=== PATIENT | male | born 1955 | race Caucasian/White ===

== ENCOUNTER 2016-11-21 11:05 | Inpatient (IN) | payer OTHER ==
[~2016-11-21] VITALS: Ht 170.2 cm; Wt 127.0 kg
[~2016-11-21 11:05] MED LIST: ALBU8.5H3 INH; AMLO1CAP15 PO; CELE200C PO; GLIM4TAB PO; METO-429 PO; MTF1000T PO; POLY17PO6 PO; SITA50TA2 PO; TETR15DR63 BOTH EYES
[2016-11-21] MEDS ORDERED: SOD CHLORIDE 0.9% 100 ML IV STA (11:59)
[2016-11-21 12:19] LABS: ADD SCAN DIFF NO
[2016-11-21 12:23] LABS: ABNORMAL IP MESSAGE 1; HEMATOCRIT 45.4 % (42.0-52.0); MEAN CORPUSCULAR HEMOGLOBIN 30.2 pg (29.0-33.0); MEAN CORPUSCULAR VOLUME 91.3 fl (82.0-101.0); MEAN PLATELET VOLUME 10.5 fl (7.4-10.4); PLATELET COUNT 218 10^3/UL (140-415); RED BLOOD COUNT 4.97 10^6/ul (4.70-6.10); RED CELL DISTRIBUTION WIDTH 13.2 % (11.5-14.5); WHITE BLOOD COUNT 48.7 10^3/ul (4.8-10.8)
[2016-11-21 12:37] LABS: ALBUMIN 4.3 g/dl (3.3-4.9); POTASSIUM 4.3 mmol/L (3.5-5.1)
[2016-11-21 12:39] LABS: CREATININE 0.53 mg/dl (0.61-1.24)
[2016-11-21 12:40] LABS: ALBUMIN/GLOBULIN RATIO 1.59; BILIRUBIN,INDIRECT 0.7 mg/dl (0-1.1); BILIRUBIN,TOTAL 0.7 mg/dl (0.2-1.3); CALCIUM 9.8 mg/dl (8.4-10.2)
[2016-11-21 12:44] LABS: INR 1.08; PT RATIO 1.1
[2016-11-21 12:45] LABS: PARTIAL THROMBOPLASTIN TIME 24.4 Sec (25.0-35.0)
[2016-11-21] MEDS ORDERED: IODIXANOL LOCM 100 ML BTL ONE (12:52)
[2016-11-21] MEDS ORDERED: SOD CHLORIDE 0.9% 100 ML ONE (12:52)
[2016-11-21 12:57] LABS: LYMPHOCYTES # 37.5 10^3/ul (0.8-2.9); MONOCYTE # 1.5 10^3/ul (0.3-0.9); NEUTROPHIL # 9.7 10^3/ul (1.6-7.5)
--- NOTE | 2016-11-21 13:43 | RADRPT ---
PROCEDURE: CT Abdomen and Pelvis with contrast. CLINICAL INDICATION: Abdominal pain TECHNIQUE: CT of the abdomen and pelvis was performed on a multi-detector scanner following the un complicated IV administration of 100 cc of Visipaque 320. Coronal and sagittal images were reformat silke from the axial data set. One or more of the following dose reduction techniques were used: auto mated exposure control, adjustment of the mA and/or kV according to patient size, use of iterative reconstruction technique. CTDI = 23.83 mGy. DLP = 1676.85 mGy-cm. COMPARISON: CT, 05/29/2016 FINDINGS: CT abdomen: 12 mm right lower lobe pulmonary nodule is again noted, stable over time. The heart size is normal, without pericardial effusion. Coronary arterial calcifications are present. The liver is fatty in filtrated, without evidence of focal mass. Gallbladder, biliary tree, pancreas, spleen, adrenal gla nds and kidneys are unremarkable. No urolithiasis or obstructive uropathy is identified. The stoma ch is grossly unremarkable. There is no abdominal aortic aneurysm or dissection. Aortoiliac atherosclerotic calcifications are noted. Prominent tariq hepatis and periaortic retroperitoneal lymph nodes are identified measuring up to 14 mm short axis diameter (3-89), stable. CT pelvis: No bowel obstruction, free intraperitoneal air or abscess is identified. The appendix is well visua lized and normal. There is no diverticulosis, diverticulitis or colitis. Fat containing umbilical and bilateral inguinal hernias are again seen, without incarceration. Urinary bladder is grossly unr emarkable. Bilateral pelvic and inguinal lymphadenopathy is again seen measuring up to 6.9 x 2.1 cm in the left pelvic sidewall (3-158), previously 5.6 x 2.1 cm. The surrounding osseous structures are remarkable for degenerative spondylosis of the spine. No ost eolytic or osteoblastic lesion is detected. IMPRESSION: 1. Bilateral pelvic and inguinal lymphadenopathy is again seen, increased in size when compared to the prior CT, concerning for neoplastic process, possibly lymphoma or metastatic disease. Further e valuation is recommended. 2. Prominent periaortic and tariq hepatis retroperitoneal lymph nodes are again noted, as well as a 12 mm right lower lobe pulmonary nodule, grossly stable when compared to the prior CT. Additional neoplastic involvement in these locations is not excluded. 3. Hepatic steatosis is noted. 4. Coronary arterial and aortoiliac atherosclerotic calcifications are present. 5. Fat-containing umbilical and bilateral inguinal hernias are noted without incarceration. 6. No bowel obstruction or perforation is identified. RPTAT: EE .Evan Easton MD, MD Date Time Electronically viewed and signed by .Evan Easton MD, on 11/21/2016 13:43 .R/
--- NOTE | 2016-11-21 13:55 | ERA ---
ER Documentation Chief Complaint Date/Time DATE: 11/21/16 TIME: 13:50 Chief Complaint abdominal pain and no bm for 2 days. difficulty urinating as well. no fever HPI 61-year-old male presents to the emergency department complaining of abdominal pain. History available via translation from the patient's daughter. Patient has a recent diagnosis of a leukemia or lymphoma. Recently, patient has had increasing masses developing in his abdomen. He has been pending biopsy which is not been able to obtain at this time. Over the last 2 days, he has had increasing abdominal pain that he rates as a 9/10. He has had some dysuria but no fevers or flank pain. Patient has had no vomiting. Patient has had no hematuria. Patient's pain is poorly localized mostly on the bottom part of his abdomen. It does not radiate. ROS All systems reviewed and are negative except as per history of present illness. Medications Home Meds Active Scripts Polyethylene Glycol* (Miralax*) 17 Gm Powd.pack, 17 GM PO DAILY, #7 Prov:KLEBER BUENROSTRO MD 05/29/16 Albuterol Sulfate* (Proair HFA*) 8.5 Gm Hfa.aer.ad, 2 PUFF INH Q4, #30 INH 1 Refill Prov:NOELLE WILLIAMSON 11/08/14 Sitagliptin* (Januvia*) 50 Mg Tab, 50 MG PO DAILY, #30 Prov:NOELLE WILLIAMSON 11/08/14 Reported Medications Metformin* (Glucophage*) 1,000 Mg Tablet, 1000 MG PO BID, #60 TAB 05/29/16 Celecoxib* (Celebrex*) 200 Mg Capsule, 200 MG PO BID Y for INFLAMATION, CAP 11/05/14 Tetrahydrozoline Hcl* (Visine*) 0.05% - 15 Ml Drops, 2 DROP BOTH EYES Q3H Y for DRY EYES, EA 11/05/14 Glimepiride* (Glimepiride*) 4 Mg Tablet, 4 MG PO BID WITH MEALS, TAB 11/05/14 Amlodipine-Benazepril (Amlodipine-Benazepril) 10-40 Mg Capsule, 1 EACH PO DAILY , TAB 11/05/14 Metoprolol Tartrate* (Lopressor*) 50 Mg Tab, 50 MG PO BID, TAB 11/05/14 Allergies Allergies: Coded Allergies: No Known Allergy (Unverified , 11/21/16) PMhx/Soc History of Surgery: No Anesthesia Reaction: No Hx Neurological Disorder: No Hx Respiratory Disorders: Yes (SLEEP APNEA) Hx Cardiac Disorders: Yes (HTN, HIGH CHOLESTEROL) Hx Psychiatric Problems: No Hx Miscellaneous Medical Probl: Yes (DM, UMBILICAL HERNIA) Hx Alcohol Use: Yes (OCCASIONAL) Hx Substance Use: No Hx Tobacco Use: No (PAST SMOKER 27 YEARS AGO) Smoking Status: Former smoker FmHx Noncontributory for chief complaint Physical Exam Vitals Vital Signs Date Time Temp Pulse Resp B/P Pulse Ox O2 Delivery O2 Flow Rate FiO2 11/21/16 11:09 98.9 115 20 135/85 95 Physical Exam GENERAL: The patient is well developed and appropriate for usual state of health in no apparent distress HEENT: Pupils equal, round, and reactive to light. EOMI. There is no scleral icterus. NECK: C-spine is soft and supple, there is no meningismus. There is no cervical lymphadenopathy. LUNGS: Clear to auscultation bilaterally. There are no rales, wheezes or rhonchi. HEART: Regular rate and rhythm, no murmurs, clicks, rubs or gallops. ABDOMEN: Soft, obese, nondistended. Minimal tenderness to palpation in the lower abdomen. No rebound or guarding. EXTREMITIES: There is no peripheral cyanosis or edema. No focal swelling or erythema. NEURO: The patient moves all four extremities with 5/5 strength. Cranial nerves II - XII are intact. Normal gait. Alert and oriented SKIN: There is no apparent rash or petechiae. HEME/LYMPHATIC: There is no evidence of excessive bruising or lymphedema. PSYCHIATRIC: The patient does not appear anxious or depressed. Result Diagram: 11/21/16 1210 11/21/16 1210 Results 24 hrs Laboratory Tests Test 11/21/16 12:10 White Blood Count 48.710^3/ul Red Blood Count 4.9710^6/ul Hemoglobin 15.0g/dl Hematocrit 45.4% Mean Corpuscular Volume 91.3fl Mean Corpuscular Hemoglobin 30.2pg Mean Corpuscular Hemoglobin Concent 33.0g/dl Red Cell Distribution Width 13.2% Platelet Count 16855^3/UL Mean Platelet Volume 10.5fl Neutrophils % 20.0% Lymphocytes % 77.0% Monocytes % 3.0% Basophils % % Neutrophils # 9.710^3/ul Lymphocytes # 37.510^3/ul Monocytes # 1.510^3/ul Basophils # 10^3/ul Prothrombin Time 14.0Sec Prothrombin Time Ratio 1.1 INR International Normalized Ratio 1.08 Activated Partial Thromboplast Time 24.4Sec Sodium Level 139mmol/L Potassium Level 4.3mmol/L Chloride Level 100mmol/L Carbon Dioxide Level 22mmol/L Anion Gap 21 Blood Urea Nitrogen 13mg/dl Creatinine 0.53mg/dl Glucose Level 240mg/dl Calcium Level 9.8mg/dl Total Bilirubin 0.7mg/dl Direct Bilirubin 0.00mg/dl Indirect Bilirubin 0.7mg/dl Aspartate Amino Transf (AST/SGOT) 19IU/L Alanine Aminotransferase (ALT/SGPT) 40IU/L Alkaline Phosphatase 48IU/L Total Protein 7.0g/dl Albumin 4.3g/dl Globulin 2.70g/dl Albumin/Globulin Ratio 1.59 Lipase 159U/L Current Medications Medications (Trade) Dose Ordered Sig/Marquita Route PRN Reason Start Time Stop Time Status Last Admin Dose Admin Sodium Chloride (NS) 100 ml @ 100 mls/hr Q1H STAT IV 11/21/16 11:59 11/21/16 12:58 DC 11/21/16 12:14 IV Flush 10 ml 10 ml STK-MED ONCE .ROUTE 11/21/16 12:52 11/21/16 12:53 DC 11/21/16 13:26 Sodium Chloride (NS) 100 ml @ ud STK-MED ONCE .ROUTE 11/21/16 12:52 11/21/16 12:53 DC 11/21/16 13:27 Iodixanol (Visipaque Locm) 100 ml STK-MED ONCE .ROUTE 11/21/16 12:52 11/21/16 12:53 DC 11/21/16 13:28 Procedures/MDM Patient was taken to a room, seen and evaluated. Comfort measures were initiated. Diagnostic tests were ordered and reviewed. 3 LEAD RHYTHM STRIP: Atrial fibrillation with controlled ventricular response EK lead EKG reviewed by myself: Atrial fibrillation with controlled ventricular response Normal [place] and intervals Nonspecific ST and T-wave changes without ST elevation Impression: Abnormal EKG RADIOLOGY: reviewed with the radiologist CONSULTATION: Patient's primary care doctor, Dr. Mendoza was notified for admission REEVALUATION: Patient is remained stable in the emergency department MEDICAL DECISION MAKIN-year-old male presents to the emergency department with abdominal pain. In the setting of his significantly elevated white blood cell count, which is likely his leukemia as well as the masses that are developing on his abdomen, I believe the patient is high risk. Patient will be admitted for further diagnostic management of these tumors as well as monitoring of his white blood cell count and control of his pain. Departure Diagnosis: Primary Impression: Abdominal pain Additional Impression: Leukocytosis KELLY JACKSON Nov 21, 2016 13:55
[2016-11-21 13:57] VITALS: TEMP 98.5
[2016-11-21 15:11] LABS: ADD UMIC NO; URINE BILIRUBIN (Dip) NEGATIVE (NEGATIVE); URINE BLOOD (Dip) NEGATIVE (NEGATIVE); URINE COLOR LT. YELLOW (YELLOW); URINE KETONES (Dip) 15 (NEGATIVE); URINE LEUKOCYTE ESTERASE (Dip) NEGATIVE (NEGATIVE); URINE NITRITE (Dip) NEGATIVE (NEGATIVE); URINE TOTAL PROTEIN (Dip) NEGATIVE (NEGATIVE); URINE UROBILINOGEN (Dip) 0.2 E.U./dL (0.1-1.0)
[2016-11-21 16:02] VITALS: BP 127/90; PULSE 75; RESP 18
[2016-11-21 16:11] VITALS: Ht 170.2 cm; Wt 127.0 kg
[2016-11-21] MEDS ORDERED: NACL 0.9% 3 ML SYG IV SCH (18:00)
[2016-11-21] MEDS ORDERED: ACETAMINOPHEN 650 MG SUPP PR PRN (18:00)
[2016-11-21] MEDS ORDERED: ONDANSETRON 4 MG TAB PO PRN (18:00)
[2016-11-21] MEDS ORDERED: HYDROCODONE/APAP (5/325) TAB PO PRN (18:00)
[2016-11-21] MEDS ORDERED: DEXTROSE 50% 50 ML SYRINGE IV PRN ×2 (18:00)
[2016-11-21] MEDS ORDERED: GLUCAGON 1 MG INJ IM PRN (18:00)
[2016-11-21] MEDS ORDERED: morphine 2 MG INJ IV PRN (18:00)
[2016-11-21] MEDS ORDERED: ACETAMINOPHEN 325 MG TAB PO PRN (18:00)
[2016-11-21] MEDS ORDERED: POLYETHYLENE GLYCOL 17 GM PACKET PO PRN (18:00)
[2016-11-21] MEDS ORDERED: GLUCOSE GEL 15 GRAM TUBE BUCCAL PRN (18:00)
[2016-11-21] MEDS ORDERED: GLUCOSE GEL 15 GRAM TUBE PO PRN ×2 (18:00)
[2016-11-21] MEDS ORDERED: CELECOXIB 200 MG CAP PO PRN (18:00)
[2016-11-21] MEDS ORDERED: TETRAHYDROZOLINE 0.05% 15 ML OPH BOTH EYES PRN (18:00)
[2016-11-21] MEDS: INSULIN ASPART [NOVOLOG] 3 ML PEN SC SCH ×2 (18:05→21:00)
--- NOTE | 2016-11-21 18:25 | HP ---
DATE OF ADMISSION: 11/21/2016 CONSULTANTS: 1. Dr. Todd Moss. 2. Dr. Garcia. CHIEF COMPLAINT: Abdominal pain and constipation. HISTORY OF PRESENT ILLNESS: This is a pleasant 61-year-old gentleman with past medical history of s leep apnea, hypertension, arthritis, diabetes mellitus, hypertension, chronic constipation and CLL w ho was diagnosed with abdominal mass and has been seen and evaluated his hematology oncologist and t here has been effort and plan to get the patient to obtain a biopsy of the nodule and the mass, alth ough they have not been successful secondary to waiting for the referral. The patient has been comp laining of having abdominal pain for the past 3 days along with constipation; therefore, he was sen t by his primary care physician to [facility] for further evaluation and treatment . Upon arrival to the ER, the patient had a CT of the abdomen and pelvis that showed bilateral pelv ic inguinal lymphadenopathy which is seen again increased in size when compared to prior CT concerni ng for neoplastic process, possibly lymphoma or metastatic disease, prominent periaortic or tariq he patis. Retroperitoneal lymph nodes are again noted as well as a 12 mm right lower lobe pulmonary no dule, grossly stable when compared to prior CT. Additional neoplastic involvement in this location is not excluded. Hepatic steatosis is noted, coronary arterial and aortoiliac atherosclerotic calci fications are present, fat containing umbilical and bilateral inguinal hernia are noted without inca rceration. No bowel obstruction or perforation was identified. General surgery was consulted from ER. The patient was treated with pain medication in the course of emergency room. He had a bowel m ovement in the ER. At this time, the patient denies any chest pain, shortness of breath, nausea, vo miting, diarrhea. No headache, dizziness, numbness. No change in visual acuity, diplopia, photopho katia. Improvement in abdominal pain, no change in the color of stool. No dysuria, hematuria, urgenc y, incontinence. No neck pain, no restricted range of motion in upper and lower extremities or any other discomfort except what was stated above. PAST MEDICAL AND SURGICAL HISTORY: As above per HPI. MEDICATIONS: 1. Albuterol sulfate. 2. Amlodipine/benazepril. 3. Celebrex. 4. Glimepiride. 5. Glucophage. 6. Lopressor. 7. MiraLax. 8. Januvia. 9. Visine. ALLERGIES: NO KNOWN DRUG ALLERGIES. FAMILY HISTORY: Positive for hypertension, diabetes mellitus. SOCIAL HISTORY: He used to smoke. He quit about 30 years ago. No alcohol, no illicit drugs. REVIEW OF SYSTEMS: As above per HPI, otherwise 12 review of systems was found to be negative. PHYSICAL EXAMINATION: VITAL SIGNS: Temperature 98.5, pulse 75, respiration 18, blood pressure 115/85, oxygen saturation 9 7% in room air. GENERAL APPEARANCE: Patient is lying in the bed comfortably without any acute distress. He is awak e, alert, oriented. He is able to answer my questions properly. Body habitus is morbidly obese wit h a BMI of 43.9. EYES AND ENT: Conjunctivae and lids are normal. Pupils are normal. Extraocular normal. Hearing g rossly normal. Lips are normal. Oral mucosa is mildly dry. NECK: Supple. Trachea is midline. No lymphadenopathy. RESPIRATORY: Effort is normal. Clear to auscultation bilaterally. CARDIOVASCULAR: Normal S1, S2. Regular rhythm and rate. No murmur, no bruits, no edema. Peripher al pulses, radial pulses palpable. Cap refill is normal. CHEST: Normal expansion of thorax in inspiration. GASTROINTESTINAL: Abdomen contour is morbidly obese. Bowel sounds present. No guarding, no reboun d. There is an umbilical hernia which is easily reducible. GENITOURINARY: Deferred. MUSCULOSKELETAL: Upper and lower extremities within normal limits. There is stasis dermatitis bila teral lower extremities. NEUROLOGIC: Cranial nerves II through XII are grossly intact. PSYCHIATRIC: He is awake, alert, oriented. LABORATORY WORK AND IMAGING: WBC 48.7, pulse 50, respirations 45.4, platelets 218. Sodium 139, pot assium 4.3, chloride 100, bicarbonate 22, BUN 13, creatinine 0.53, glucose 240, calcium 9.8. LFTs a ll within normal limits. Urinalysis negative except glucose 0.25%. ASSESSMENT AND PLAN: 1. Abdominal pain, likely secondary to chronic constipation versus bilateral pelvic inguinal lympha denopathy and concern of neoplastic process. General surgery and hematology/oncology have been cons ulted. 2. Chronic constipation. The patient will be continued on MiraLax and placed on Colace. 3. Diabetes mellitus, well controlled on medical management. 4. Insulin sliding scale and low carb diet. The patient on low dose of Lantus and hold glimepiride . 5. Essential hypertension, well controlled on home medications. Will continue to monitor. 6. Chronic lymphocytic leukemia. Hematology/oncology has been consulted. Patient is afebrile. 7. Deep venous thrombosis prophylaxis, on sequential compression devices. 8. For gastrointestinal prophylaxis, on proton pump inhibitor. We will continue to monitor patient closely. Further recommendations, management and treatment as p er clinical course. Dictated By: VICKY SANDRA MD PN/NTS Conf#: [id number] DID#: [id number] CC: EDWARD GARCIA MD;*EndCC*
[2016-11-21] MEDS: metFORMIN 500 MG TAB PO SCH (19:01)
[2016-11-21] MEDS ORDERED: INSULIN GLARGINE [LANtus] 3 ML PEN SC SCH (20:00)
[2016-11-21 20:03] VITALS: BP 131/84; RESP 20
--- NOTE | 2016-11-21 20:19 | CONS ---
Date/Time of Note Date/Time of Note DATE: 11/21/16 TIME: 20:10 Assessment/Plan Assessment/Plan Chief Complaint/Hosp Course 61-year-old morbidly obese German male with abdominal pain, chronic constipation, abdominal and pelvic lymphadenopathy * The above are likely secondary to the patient's CLL. * Recommend CT-guided biopsy of pelvic sidewall mass * Recommend oncology evaluation * Patient will need a bowel regimen for his chronic constipation * Would recommend colonoscopy as patient has never had one. This can be done as an outpatient. * Will order stool for occult blood. The above was discussed extensively with the patient and his family at the bedside. Further recommendations will be made based on the patient's clinical course. Greater than 60 minutes was spent in chart review, direct patient care, and discussion with the patient's family. Problems: Consultation Date/Type/Reason Admit Date/Time Nov 21, 2016 at 14:14 Date of Consultation: Nov 21, 2016 Type of Consultation: GENERAL SURGERY Reason for Consultation Abdominal pain Hx of Present Illness The patient is a morbidly obese 61-year-old German gentleman with past medical history of known CLL, sleep apnea, hypertension, arthritis, diabetes mellitus, chronic constipation who presented to the emergency room complaining of lower abdominal pain and constipation. He describes the pain as being in the suprapubic and inguinal areas. The patient apparently has not been undergoing any treatment for his CLL. He has a known pelvic sidewall mass for which she has been waiting for an image guided biopsy, however, this has taken a long time due to insurance reasons. He is being followed by an oncologist who is not on staff at [facility]. Since arrival to the hospital he has had a bowel movement and reports relief in his abdominal pain. Apparently he has had a history of night sweats for the past 20 years. There is been no recent weight loss. He has never had a colonoscopy. Additional history was obtained from the patient's daughter at the bedside. A 14 point review of systems was conducted and was negative except for that which was mentioned in history of present illness Past Medical History As in history of present illness Family History Significant Family History: heart disease, cancer Social History Smoking Status: Former smoker Exam/Review of Systems Vital Signs Vitals Vital Signs Date Time Temp Pulse Resp B/P Pulse Ox O2 Delivery O2 Flow Rate FiO2 11/21/16 20:03 97.8 106 20 131/84 94 11/21/16 16:02 Room Air Exam GENERAL: Morbidly obese German gentleman who is Awake, alert, oriented 3. No acute distress. SKIN: No jaundice. HEENT: PERRLA, EOMI, No Scleral Icterus NECK: Supple without JVD CARDIOVASCULAR: S1S2, regular rate and rhythm. No murmurs appreciated. RESPIRATORY: Clear to auscultation bilaterally. ABDOMEN: Morbidly obese, Soft, bowel sounds present, nontender to palpation. There is a moderate-sized reducible umbilical hernia palpated. It is nontender to palpation. There is no palpable inguinal lymphadenopathy, however, exam is difficult given the patient's morbidly obese body habitus. RECTAL: Good tone. No blood on finger. No masses palpable, however, exam is difficult given patient's morbidly obese body habitus. EXTREMITIES: Free range of motion 4. No cyanosis, edema, or clubbing. NEUROLOGIC: Cranial nerves II-XII are intact. Sensation is intact grossly. Results Result Diagram: 11/21/16 1210 11/21/16 1210 Results 24 hrs Laboratory Tests Test 11/21/16 12:10 11/21/16 14:50 11/21/16 17:17 White Blood Count 48.7 H Red Blood Count 4.97 Hemoglobin 15.0 Hematocrit 45.4 Mean Corpuscular Volume 91.3 Mean Corpuscular Hemoglobin 30.2 Mean Corpuscular Hemoglobin Concent 33.0 Red Cell Distribution Width 13.2 Platelet Count 218 Mean Platelet Volume 10.5 #H Neutrophils % 20.0 L Lymphocytes % 77.0 H Monocytes % 3.0 Basophils % Neutrophils # 9.7 H Lymphocytes # 37.5 H Monocytes # 1.5 H Basophils # Prothrombin Time 14.0 Prothrombin Time Ratio 1.1 INR International Normalized Ratio 1.08 Activated Partial Thromboplast Time 24.4 L Sodium Level 139 Potassium Level 4.3 Chloride Level 100 Carbon Dioxide Level 22 Anion Gap 21 H Blood Urea Nitrogen 13 Creatinine 0.53 L Glucose Level 240 H Calcium Level 9.8 Total Bilirubin 0.7 Direct Bilirubin 0.00 Indirect Bilirubin 0.7 Aspartate Amino Transf (AST/SGOT) 19 Alanine Aminotransferase (ALT/SGPT) 40 Alkaline Phosphatase 48 Total Protein 7.0 Albumin 4.3 Globulin 2.70 Albumin/Globulin Ratio 1.59 Lipase 159 Urine Color LT. YELLOW Urine Clarity CLEAR Urine pH 5.5 Urine Specific [place] 1.010 Urine Ketones 15 Urine Nitrite NEGATIVE Urine Bilirubin NEGATIVE Urine Urobilinogen 0.2 E.U./dL Urine Leukocyte Esterase NEGATIVE Urine Hemoglobin NEGATIVE Urine Glucose 0.25% H Urine Total Protein NEGATIVE Bedside Glucose 120 Medications Medications Current Medications Influenza Virus Vaccine (Fluzone) 0.5 ml ONCE ONCE IM* ; Start 11/22/16 at 11:00 ; Stop 11/22/16 at 11:01 Albuterol (Ventolin Hfa) 2 puff Q4 INH ; Start 11/21/16 at 21:00 Celecoxib (Celebrex) 200 mg BID PRN PO INFLAMATION; Start 11/21/16 at 18:00 Metoprolol Tartrate (Lopressor) 50 mg BID PO ; Start 11/21/16 at 21:00 Polyethylene Glycol (Miralax) 17 gm DAILY PRN PO CONSTIPATION; Start 11/21/16 at 18:00 Tetrahydrozoline HCl (Geneyes Oph) 2 drop QID PRN BOTH EYES DRY EYES; Start at 18:00 Amlodipine Besylate (Norvasc) 10 mg DAILY PO ; Start 11/22/16 at 09:00 Linagliptin (Tradjenta) 5 mg DAILY PO ; Start 11/22/16 at 09:00 Diagnostic Test (Pha) (Accu-Chek) 1 ea 02 XX ; Start 11/22/16 at 02:00 Insulin Glargine (Lantus) 5 unit DAILY@20 SC ; Start 11/21/16 at 20:00 Ondansetron HCl (Zofran Tab) 4 mg Q6H PRN PO NAUSEA AND/OR VOMITING; Start at 18:00 Acetaminophen (Tylenol Tab) 650 mg Q6H PRN PO PAIN LEVEL 1-3 OR FEVER; Start at 18:00 Acetaminophen (Tylenol Supp) 650 mg Q6H PRN [place] PAIN LEVEL 1-3 OR FEVER; Start 11/21/16 at 18:00 Acetaminophen/ Hydrocodone Bitart (Bastrop (5/325)) 1 tab Q6H PRN PO MODERATE PAIN LEVEL 4-6; Start 11/21/16 at 18:00 Morphine Sulfate (morphine) 1 mg Q4H PRN IV SEVERE PAIN LEVEL 7-10; Start 11/21 at 18:00 Docusate Sodium (Colace) 100 mg DAILY PO ; Start 11/22/16 at 09:00 Pantoprazole (Protonix Tab) 40 mg DAILY@06 PO ; Start 11/22/16 at 06:00 Miscellaneous Information 1 ea NOTE XX ; Start 11/21/16 at 18:00 Glucose (Glutose) 15 gm Q15M PRN PO DECREASED GLUCOSE; Start 11/21/16 at 18:00 Glucose (Glutose) 22.5 gm Q15M PRN PO DECREASED GLUCOSE; Start 11/21/16 at 18: 00 Dextrose (D50w Syringe) 25 ml Q15M PRN IV DECREASED GLUCOSE; Start 11/21/16 at 18:00 Dextrose (D50w Syringe) 50 ml Q15M PRN IV DECREASED GLUCOSE; Start 11/21/16 at 18:00 Glucagon (Glucagen) 1 mg Q15M PRN IM DECREASED GLUCOSE; Start 11/21/16 at 18:00 Glucose (Glutose) 15 gm Q15M PRN BUCCAL DECREASED GLUCOSE; Start 11/21/16 at 18 :00 Benazepril HCl (Lotensin) 40 mg DAILY PO ; Start 11/22/16 at 09:00 Procedures Procedures PROCEDURE: CT Abdomen and Pelvis with contrast. CLINICAL INDICATION: Abdominal pain TECHNIQUE: CT of the abdomen and pelvis was performed on a multi-detector scanner following the uncomplicated IV administration of 100 cc of Visipaque 320. Coronal and sagittal images were reformatted from the axial data set. One or more of the following dose reduction techniques were used: automated exposure control, adjustment of the mA and/or kV according to patient size, use of iterative reconstruction technique. CTDI = 23.83 mGy. DLP = 1676.85 mGy- cm. COMPARISON: CT, 05/29/2016 FINDINGS: CT abdomen: 12 mm right lower lobe pulmonary nodule is again noted, stable over time. The heart size is normal, without pericardial effusion. Coronary arterial calcifications are present. The liver is fatty infiltrated, without evidence of focal mass. Gallbladder, biliary tree, pancreas, spleen, adrenal glands and kidneys are unremarkable. No urolithiasis or obstructive uropathy is identified. The stomach is grossly unremarkable. There is no abdominal aortic aneurysm or dissection. Aortoiliac atherosclerotic calcifications are noted. Prominent tariq hepatis and periaortic retroperitoneal lymph nodes are identified measuring up to 14 mm short axis diameter (3-89), stable. CT pelvis: No bowel obstruction, free intraperitoneal air or abscess is identified. The appendix is well visualized and normal. There is no diverticulosis, diverticulitis or colitis. Fat containing umbilical and bilateral inguinal hernias are again seen, without incarceration. Urinary bladder is grossly unremarkable. Bilateral pelvic and inguinal lymphadenopathy is again seen measuring up to 6.9 x 2.1 cm in the left pelvic sidewall (3-158), previously 5.6 x 2.1 cm. The surrounding osseous structures are remarkable for degenerative spondylosis of the spine. No osteolytic or osteoblastic lesion is detected. IMPRESSION: 1. Bilateral pelvic and inguinal lymphadenopathy is again seen, increased in size when compared to the prior CT, concerning for neoplastic process, possibly lymphoma or metastatic disease. Further evaluation is recommended. 2. Prominent periaortic and tariq hepatis retroperitoneal lymph nodes are again noted, as well as a 12 mm right lower lobe pulmonary nodule, grossly stable when compared to the prior CT. Additional neoplastic involvement in these locations is not excluded. 3. Hepatic steatosis is noted. 4. Coronary arterial and aortoiliac atherosclerotic calcifications are present. 5. Fat-containing umbilical and bilateral inguinal hernias are noted without incarceration. 6. No bowel obstruction or perforation is identified. RPTAT: EE .Evan Easton MD, Date Time Electronically viewed and signed by .Evan Easton MD, on 11/21/2016 13: 43 .R/ CC: KELLY JACKSON MICHAEL A. MD Nov 21, 2016 20:19
[2016-11-21] MEDS: ALBUTEROL HFA 8 GM INHALER INH SCH (21:45)
[2016-11-21] MEDS: METOPROLOL 50 MG TAB PO SCH (21:46)
[2016-11-22] MEDS: ALBUTEROL HFA 8 GM INHALER INH SCH ×4 (00:40→12:42)
[2016-11-22] MEDS ORDERED: ACCU-CHEK XX SCH (02:00)
[2016-11-22 05:11] LABS: ADD SCAN DIFF NO
[2016-11-22 05:27] LABS: ABNORMAL IP MESSAGE 1; HEMATOCRIT 43.4 % (42.0-52.0); HEMOGLOBIN 14.4 g/dl (14.0-18.0); MEAN CORPUSCULAR HEMOGLOBIN 30.7 pg (29.0-33.0); MEAN CORPUSCULAR HGB CONC 33.2 g/dl (32.0-37.0); MEAN CORPUSCULAR VOLUME 92.5 fl (82.0-101.0); MEAN PLATELET VOLUME 10.8 fl (7.4-10.4); PLATELET COUNT 209 10^3/UL (140-415); RED BLOOD COUNT 4.69 10^6/ul (4.70-6.10); RED CELL DISTRIBUTION WIDTH 13.1 % (11.5-14.5)
[2016-11-22 05:38] LABS: POTASSIUM 3.8 mmol/L (3.5-5.1)
[2016-11-22 05:41] LABS: CREATININE 0.52 mg/dl (0.61-1.24)
[2016-11-22 05:42] LABS: CALCIUM 9.1 mg/dl (8.4-10.2); CHOL/HDL RATIO 4.6 RATIO; MAGNESIUM 1.5 mg/dl (1.7-2.5)
[2016-11-22] MEDS ORDERED: PANTOPRAZOLE (EC) 40 MG TAB PO SCH (06:00)
[2016-11-22 06:12] LABS: THYROID STIMULATING HORMONE 2.69 MIU/L (0.465-4.680)
[2016-11-22 07:43] VITALS: BP 138/89; RESP 20
[2016-11-22] MEDS: INSULIN ASPART [NOVOLOG] 3 ML PEN SC SCH ×2 (08:00→11:48)
[2016-11-22] MEDS ORDERED: AMLODIPINE 10 MG TAB PO SCH (09:00)
[2016-11-22] MEDS ORDERED: LINAGLIPTIN 5 MG TABLET PO SCH (09:00)
[2016-11-22] MEDS ORDERED: BENAZEPRIL 40 MG TAB PO SCH (09:00)
[2016-11-22] MEDS ORDERED: DOCUSATE SODIUM 100 MG CAP PO SCH (09:00)
--- NOTE | 2016-11-22 09:02 | CONS ---
DATE OF ADMISSION: 11/21/2016 DATE OF CONSULTATION: 11/22/2016 REQUESTING PHYSICIAN: Jignesh Ferguson MD REASON FOR CONSULTATION: Pelvic lymphadenopathy and leukocytosis. Dear Dr. Ferguson: Thank you very much for asking me to see this very interesting and pleasant gentleman in hematologic consultation. As you know, I am familiar with Mr. Jaimes who I saw actually on 11/06/2014 when the patient was hospitalized. At that time, he had leukocytosis with a white count of 40,000 of wh ich 80% were lymphocytes. The patient at that time had a normal hemoglobin and hematocrit. It was felt that the patient had a chronic lymphocytic leukemia. No treatment was initiated at that time. The patient is now readmitted to [facility] with complaints of lower abdominal eduarda n. The patient states that he had been experiencing lower abdominal pain for approximately the past 3 or 4 days. The patient states this was associated with constipation. He, however, did not have nausea or vomiting. Since being in the hospital, the patient has had multiple bowel movements, and the pain has resolved . A CT scan of the abdomen and pelvis which was done in the emergency room does show bilateral pelvic and inguinal lymphadenopathy. There is also prominent periaortic and retroperitoneal lymphadenopath y. In the pelvis there is a 6 x 9 x 2.1 cm mass in the left pelvic side wall. It should be noted t hat the patient was in the emergency room in May 2016. At that time, a CT scan of the abdomen a nd pelvis was done which demonstrated the bulky pelvic lymphadenopathy as well as retroperitoneal ly mphadenopathy. This had adenopathy has increased since that time. Apparently there was a plan to h ave this lymphadenopathy biopsied, but this has never been done. As noted, the patient's main complaint on admission was abdominal pain. He has had no nausea or vom iting. No fevers, although he does state he has had night sweats for many years. His appetite has been good. He has had no unusual weight loss or gain. On admission to the hospital, the patient's white count was 48,700 with an absolute lymphocyte count of 37,500 or 77% lymphocytes. Hemoglobin was 15, hematocrit 45.4, platelet count 218,000. Protime 14 seconds, INR of 1.08, PTT 24.4 seconds. A comprehensive metabolic panel revealed a glucose of 204. Liver functions were normal. Albumin was 4.2 with a total protein of 7.0. PAST MEDICAL HISTORY: Does include hypertension, diabetes mellitus, and sleep apnea. PAST SURGICAL HISTORY: He has had no surgeries in the past. He said he has had no unusual infectio ns such as hepatitis or tuberculosis. MEDICATIONS: At home have included: 1. Albuterol. 2. Amlodipine. 3. Benazepril 4. Celebrex. 5. Glimepiride. 6. Glucophage. 7. Lopressor. 8. MiraLax. 9. Januvia and Visine eyedrops. ALLERGIES: HE HAS NO KNOWN ALLERGIES. FAMILY HISTORY: The patient's family history is remarkable in that there is a history of hypertensi on and diabetes mellitus. There is no history of any malignancy or hematologic abnormalities. SOCIAL HISTORY: The patient was born in [facility], [place]. He has no known exposures to industrial toxins or ionizing radiation. The patient does admit to smoking in the past, but he has not smoked now for 2 5 to 30 years. He does use alcohol occasionally. PHYSICAL EXAMINATION: GENERAL: At this time reveals a well-developed, but obese male who is in no acute distress. VITAL SIGNS: Temperature 98.1, pulse 81, respirations 20, blood pressure 138/89, pulse oximetry 96% on room air. SKIN: No ecchymosis, no petechiae or rashes. There are bilateral hyperpigmentation and stasis durbin ges in the pretibial areas. HEENT: Normocephalic. No evidence of trauma. The pupils are equal, round, react to light and acco mmodation. Sclerae are nonicteric. Oral mucosa is moist without lesions. Tongue is well papillate d. No gingival hyperplasia, no hypertrophy of Waldeyer's ring, no mucosal telangiectasias. NECK: Supple, no jugular venous distention or thyroid enlargement. No carotid bruits. CHEST: Decreased breath sounds in both bases but no rhonchi, wheezes, rales, or rubs. There is no pain on percussion of the spine, sternum, clavicles, or ribs. BREASTS: No gynecomastia. HEART: Regular sinus rhythm, no S3, S4, or murmurs. ABDOMEN: Obese. Unable to appreciate any organomegaly at this time. NODES: No palpable lymphadenopathy at this time, but difficult to palpate again because of the dayton ent's obesity. EXTREMITIES: Good range of motion, no clubbing, edema, or cyanosis. NEUROLOGIC: Normal. I have reviewed today's peripheral smear. This does show normal red blood cell morphology. White b lood cells are increased. The majority of these white blood cells are lymphocytes. There are some atypical lymphocytes and some "basket cells." The platelets are normal in number and appearance. DISCUSSION: This patient has chronic lymphocytic leukemia. He has, at this time what would be desc ribed as stage I chronic lymphocytic leukemia, meaning that the patient does have lymphadenopathy. He actually does not have any symptoms nor does he have any other compromise hematologically. It is not clear that the patient's lower abdominal pain is was, in fact, in any way related to the l ymphadenopathy which is present and expected in CLL. The patient has not had a colonoscopy in the past, and therefore, I would agree with Dr. Moss that a colonoscopy should be performed if possible. The patient's pelvic lymphadenopathy I feel is almost certainly related to a lymphoproliferative dis order. There certainly would be no contraindication to biopsying this lesion to rule out the possib ility of a second malignancy. I will obtain further studies at this time to include an LDH, uric acid, quantitative immunoglobulin s, and a beta 2 microglobulin. Will also send peripheral blood for flow cytometry to verify the fac t that this is chronic lymphocytic leukemia. Normally patients with chronic lymphocytic leukemia who have this hematologic picture, treatment is not indicated. If, however, the patient is symptomatic and his most recent abdominal pain is relate d to the lymphoproliferative disorder, treatment may be administered. I feel the patient would like ly have an excellent response to a combination of rituximab and bendamustine. Given the bulky lymph adenopathy, one would have to be careful regarding the possibility of tumor lysis syndrome and make sure that the patient was adequately prepared prior to the initiation of any therapy. Dictated By: EDWARD DUARTE MD, SR/NTS Conf#: [id number] DID#: [id number]
[2016-11-22] MEDS ORDERED: LIDOCAINE 1% (MDV) 20 ML INJ ONE (09:08)
[2016-11-22 09:15] VITALS: BP 145/100; PULSE 110; RESP 16
[2016-11-22] MEDS ORDERED: FENTAnyl 50 MCG/ML VIAL ONE (09:27)
[2016-11-22] MEDS ORDERED: MIDAZOLAM 1 MG/ML 2 ML INJ ONE (09:28)
[2016-11-22] MEDS ORDERED: SOD CHLORIDE 0.9% 500 ML ONE (09:31)
[2016-11-22 09:45] VITALS: BP 143/83; PULSE 120; RESP 16
[2016-11-22 09:50] VITALS: BP 135/97; PULSE 110; RESP 16
[2016-11-22 09:52] LABS: BASOPHIL # 0.5 10^3/ul (0.0-0.1); EOSINOPHILS # 0.5 10^3/ul (0.0-0.5); LYMPHOCYTES # 37.1 10^3/ul (0.8-2.9); MONOCYTE # 1.9 10^3/ul (0.3-0.9); NEUTROPHIL # 6.6 10^3/ul (1.6-7.5)
[2016-11-22 09:55] VITALS: BP 131/92; PULSE 120; RESP 16
[2016-11-22] MEDS ORDERED: INFLUENZA VIRUS VACCINE 0.5 ML SYG IM* ONE (11:00)
[2016-11-22] MEDS: metFORMIN 500 MG TAB PO SCH (11:38)
[2016-11-22] MEDS: METOPROLOL 50 MG TAB PO SCH (11:40)
[2016-11-22 14:39] LABS: LACTATE DEHYDROGENASE 393 IU/L (313-618)
[2016-11-22 14:55] LABS: URIC ACID 7.8 mg/dl (3.1-7.9)
[2016-11-22 15:09] LABS: IMMUNOGLOBULIN G 673 mg/dl (700-1600)
[2016-11-22 15:10] LABS: IMMUNOGLOBULIN A 139 mg/dl (70-400)
[2016-11-22 15:16] LABS: IMMUNOGLOBULIN M < 25 mg/dl (40-230)
--- NOTE | 2016-11-22 16:13 | PDOCDIS ---
Discharge Instructions CONDITION Patient Condition: Good HOME CARE INSTRUCTIONS: Special Diet: 2 gm na ACTIVITY: Activity Restrictions: No Restrictions FOLLOW UP/APPOINTMENTS Appointments Follow-up with primary care physician as outpatient Follow up with sweeper driver oncologist as outpatient VICKY SANDRA MD Nov 22, 2016 16:12
[2016-11-22] MEDS ORDERED: MAGN400T27 PO (16:15)
[2016-11-22] MEDS ORDERED: MAGNESIUM OXIDE 400 MG TAB PO ONE (16:30)
--- NOTE | 2016-11-22 17:50 | RADRPT ---
PROCEDURE: CT pelvis without contrast. CLINICAL INDICATION: Enlarged pelvic lymph nodes TECHNIQUE: CT scan of the pelvis without contrast was performed on the multi slice CT scanner anti cipation of biopsy in an enlarged right pelvic sidewall lymph node. No intravenous contrast was adm inistered. 3-D sagittal and coronal reformatted images were obtained from the axial source images. COMPARISON: Outside PET/CT from June [address] abdomen/pelvis from 11/21/2016 FINDINGS: Multiple axial sequences of the pelvis were obtained in anticipation of performing a biopsy of an en larged right external iliac lymph node measuring up to 2 cm in short axis. The right pelvic sidewall lymph nodes were noted to demonstrate increased metabolic activity on the prior PET CT from 2015. There are also enlarged left pelvic sidewall lymph nodes measuring up to 2.1 cm. The urinary bladder is normal. Nondilated loops of small and large bowel are noted. There is no free fluid. The bony pelvis is intact. No acute fracture is noted. Soft tissue structures are unremarkable. IMPRESSION: Multiple axial sequences of the pelvis were obtained in anticipation of doing a CT guided biopsy of an enlarged right external iliac lymph node. The decision was made in consultation with the oncolog y team to establish a diagnosis from a peripheral blood smear as well as cytopathologic stains rathe r than a CT guided biopsy. No biopsy was performed. Please see findings above. RPTAT: AA Physician Efe Date Time Electronically viewed and signed by Physician Efe on 11/22/2016 17:50 /
--- NOTE | 2016-11-23 13:21 | DS ---
DATE OF ADMISSION: 11/21/2016 DATE OF DISCHARGE: 11/22/2016 CONSULTANTS: 1. General surgery. 2. Hematology/oncology. 3. Interventional radiologist. DIAGNOSES: 1. Chronic lymphocytic leukemia, meaning that the patient does have lymphadenopathy. 2. Chronic constipation. 3. Diabetes mellitus. 4. Essential hypertension. 5. Morbid obesity. 6. Sleep apnea. 7. Essential hypertension. MEDICATIONS: 1. Albuterol sulfate. 2. Amlodipine. 3. Benazepril. 4. Celebrex. 5. Glimepiride. 6. Glucophage. 7. Lopressor. 8. MiraLax. 9. Januvia. 10. Visine. ALLERGIES: NO KNOWN DRUG ALLERGIES. DISPOSITION: Home. LABORATORY: WBC 47, hemoglobin 14.4, hematocrit 43.4, platelets 219, hemoglobin 8.8. Sodium 137, p otassium 3.8, chloride 99, bicarbonate 28, BUN 10, creatinine 0.52, glucose 166. Hemoglobin A1c 8.8 , ____magnesium 1.5, which was repleted. Triglyceride 249, total cholesterol 155, LDL 72, HDL 33. TSH 2.690. HOSPITAL COURSE: This is a very pleasant 61-year-old gentleman with past medical history of diabete s mellitus, hypertension, arthritis, sleep apnea, chronic constipation, and CLL who was diagnosed wi th abdominal nodular mass and was seen and evaluated by carroting machine operator/oncologist and has been ____ an d plan to get the patient the patient obtained a biopsy of the nodule and the mass, although this lou s not been successful and waiting for referral. Patient has been having abdominal discomfort x3 day s of vomiting, constipation without any nausea, vomiting or diarrhea or soft stool. Upon arrival to emergency, CT abdomen and pelvis showed bilateral pelvic inguinal lymphadenopathy which was seen fr om prior. General surgery, hematology/oncology were consulted. Patient was admitted to med/surg, a nd was placed on proper constipation medications. His home medication for his diabetes mellitus, metformin, was continued. Patient was placed on insu salvador sliding scale and low dose of Lantus. Glimepiride was placed on hold. For his blood pressure, patient was continued on benazepril, metoprolol and amlodipine. The patient was seen and evaluated by the carroting machine operator/oncologist and was set up for a CT-guided biopsy of the lymph node, although aft er discussing with interventional radiology regarding the biopsy, it was decided that this biopsy wo uld be a very complicated and high risk biopsy secondary to the characteristics and position and as per carroting machine operator/oncologist, this is likely secondary to nodule of his CLL, stage I, and no further biopsy would be needed. The patient was going to have his blood ____microglobulin and immunofixat ion. Patient is to follow up with his primary care physician for referral to plant operations vice president for possible colonoscopy as outpatient. CONDITION AT TIME OF DISCHARGE: Stable. Dictated By: VICKY SANDRA MD PN/NTS Conf#: [id number] DID#: [id number]
[2016-11-25] MEDS ORDERED: INFLUENZA VIRUS VACCINE 0.5 ML SYG IM* ONE (09:00)
== END 2016-11-22 16:50 | disposition home or self-care (01) | DRG 841 ==
LOC: E/R 11:05 → PP2 14:14
PROVIDERS: ADMIT Family Medicine; ATTEND Family Medicine
DX: C91.10 Chronic lymphocytic leukemia of B-cell type not having achieved remission (principal); Z68.41 Body mass index [BMI] 40.0-44.9, adult; I10 Essential (primary) hypertension; K59.09 Other constipation; E11.9 Type 2 diabetes mellitus without complications; E66.01 Morbid (severe) obesity due to excess calories; G47.30 Sleep apnea, unspecified; R59.0 Localized enlarged lymph nodes
CPT/HCPCS: 36415; 72192; 74177; 80048; 80053; 80061; 81003; 82784; 82962; 83036; 83615; 83690; 83735; 84443; 84560; 85025; 85610; 85730; 86320; 88300; 90686; 93005; J1815; J2250; J3010; J7040; Q9967